=== PATIENT | female | born 1975 | race Caucasian/White ===

== ENCOUNTER 2024-06-09 14:07 | Outpatient (RCR) | payer MEDICAID, SELFPAY | END 2024-06-18 23:59 | disposition home or self-care (01) | LOC: SCTC 14:07 | PROVIDERS: PCP Family Medicine; Referring Provider Family Medicine; Visit Provider Internal Medicine Hematology & Oncology | DX: E53.8 Deficiency of other specified B group vitamins (principal) | CPT/HCPCS: 96372; J3420 ==

== ENCOUNTER 2024-07-11 09:09 | Outpatient (RCR) | payer MEDICAID, SELFPAY | END 2024-07-19 23:59 | disposition home or self-care (01) | LOC: SCTC 09:09 | PROVIDERS: PCP Family Medicine; Referring Provider Family Medicine; Visit Provider Internal Medicine Hematology & Oncology | DX: E53.8 Deficiency of other specified B group vitamins (principal); D50.9 Iron deficiency anemia, unspecified; Z98.84 Bariatric surgery status | CPT/HCPCS: 96372; J3420 ==

== ENCOUNTER 2024-08-11 14:25 | Outpatient (RCR) | payer MEDICAID, SELFPAY | END 2024-08-19 23:59 | disposition home or self-care (01) | LOC: SCTC 14:25 | PROVIDERS: PCP Family Medicine; Referring Provider Family Medicine; Visit Provider Nurse Practitioner Family | DX: Z09 Encounter for follow-up examination after completed treatment for conditions other than malignant neoplasm (principal); Z86.2 Personal history of diseases of the blood and blood-forming organs and certain disorders involving the immune mechanism; E53.8 Deficiency of other specified B group vitamins; Z98.84 Bariatric surgery status; Z80.3 Family history of malignant neoplasm of breast | CPT/HCPCS: 96372; 99212; J3420; G0463 ==

== ENCOUNTER 2024-09-08 13:05 | Outpatient (RCR) | payer MEDICAID, SELFPAY | END 2024-09-16 23:59 | disposition home or self-care (01) | LOC: SCTC 13:05 | PROVIDERS: PCP Family Medicine; Referring Provider Family Medicine; Visit Provider Internal Medicine Hematology & Oncology | DX: E53.8 Deficiency of other specified B group vitamins (principal); Z98.84 Bariatric surgery status | CPT/HCPCS: 96372; J3420 ==

== ENCOUNTER 2024-10-06 13:07 | Outpatient (RCR) | payer MEDICAID, SELFPAY | END 2024-10-17 23:59 | disposition home or self-care (01) | LOC: SCTC 13:07 | PROVIDERS: PCP Family Medicine; Referring Provider Family Medicine; Visit Provider Internal Medicine Hematology & Oncology | DX: E53.8 Deficiency of other specified B group vitamins (principal); D50.9 Iron deficiency anemia, unspecified; Z98.84 Bariatric surgery status | CPT/HCPCS: 96372; J3420 ==

== ENCOUNTER → 2024-10-11 | Outpatient (CLI) | payer MEDICAID, SELFPAY ==
--- NOTE | 2024-10-11 08:45 | XR_ITS ---
Examination: Screening digital mammography, bilateral Computer aided detection 3-D breast Tomosynthesis, bilateral Date and time of exam: October 11, 2024 at 0854 hours Compared to mammograms dating to May 28, 2020 Indication: Screening Technique: Nonmagnified MLO, CC views of the breasts to been obtained, reconstructed from 3-D Tomosynthesis images. R2 computer aided detection program utilized for evaluation of suspicious masses and/or abnormal calcifications. 3-D Tomosynthesis images obtained. Findings: Scattered areas of fibroglandular density Benign calcifications. Stable intact appearing implants 7 mm round asymmetry outer left breast CC view, 8 cm from the nipple IMPRESSION: BI-RADS Category 0: Incomplete: Need additional imaging evaluation 7 mm round asymmetry outer left breast CC view, 8 cm from the nipple, recommend follow-up spot tomographic views upper outer quadrant left breast left breast sonography to complete workup
== END | disposition home or self-care (01) ==
LOC: CDIM 08:38
PROVIDERS: Referring Provider Nurse Practitioner Family; Visit Provider Nurse Practitioner Family
DX: Z12.31 Encounter for screening mammogram for malignant neoplasm of breast (principal); R92.8 Other abnormal and inconclusive findings on diagnostic imaging of breast; N64.89 Other specified disorders of breast
CPT/HCPCS: 77063; 77067

== ENCOUNTER 2024-11-03 13:01 | Outpatient (RCR) | payer MEDICAID, SELFPAY | END 2024-11-16 23:59 | disposition home or self-care (01) | LOC: SCTC 13:01 | PROVIDERS: Referring Provider Internal Medicine Hematology & Oncology; Visit Provider Nurse Practitioner Family | DX: D50.9 Iron deficiency anemia, unspecified (principal); Z98.84 Bariatric surgery status; E53.8 Deficiency of other specified B group vitamins; N64.89 Other specified disorders of breast; Z80.3 Family history of malignant neoplasm of breast | CPT/HCPCS: 96372; 99212; J3420; G0463 ==

== ENCOUNTER 2024-12-07 08:29 | Outpatient (RCR) | payer MEDICAID, SELFPAY | END 2024-12-17 23:59 | disposition home or self-care (01) | LOC: SCTC 08:29 | PROVIDERS: Visit Provider Nurse Practitioner Family | DX: D50.9 Iron deficiency anemia, unspecified (principal); E53.8 Deficiency of other specified B group vitamins; Z98.84 Bariatric surgery status; Z80.3 Family history of malignant neoplasm of breast | CPT/HCPCS: 96365; 96372; J1756; J3420; J7050 ==

== ENCOUNTER → 2024-12-30 | Outpatient (CLI) | payer MEDICAID, SELFPAY ==
--- NOTE | 2024-12-30 14:15 | XR_ITS ---
Examination: Breast ultrasound, unilateral, left complete Date and time of exam: December 30, 2024 1407 hours INDICATIONS: Mammogram October 11, 2024 7 mm focal asymmetry outer left breast 8 cm from the nipple Technique: Real-time hernandez scale ultrasonographic imaging performed left breast including all 4 quadrants as well as nipple retroareolar and axillary region. Findings: 2:00 nodule circumscribed 13 x 3 x 10 mm IMPRESSION: BI-RADS Category 3: Probably benign findings One additional 6 month left breast sonogram follow-up is needed to document stability of 2:00 nodule described above
--- NOTE | 2024-12-30 14:45 | XR_ITS ---
Examination: Diagnostic digital mammography, unilateral, left Computer aided detection 3-D breast Tomosynthesis, unilateral Date and time of exam: December 30, 2024 1434 hours INDICATIONS: Mammogram October 11, 2024 7 mm round asymmetry outer left breast 8 cm from the nipple on the CC view Technique: Nonmagnified MLO, CC views of the left breast have been obtained, reconstructed from 3-D Tomosynthesis images. R2 computer aided detection program utilized for evaluation of suspicious masses and/or abnormal calcifications. 3-D Tomosynthesis images obtained. Findings: Scattered areas of fibroglandular density 10 mm nodule upper left breast on the spot compression views, likely corresponding to the 2:00 nodule 13 x 10 mm on the left breast sonogram report today Impression: BI-RADS category 3: Probably benign findings One additional 6 month left mammogram follow-up is needed
== END | disposition home or self-care (01) ==
PROVIDERS: PCP Physician Assistant; Referring Provider Nurse Practitioner Family; Visit Provider Nurse Practitioner Family
DX: N63.21 Unspecified lump in the left breast, upper outer quadrant (principal); R92.322 Mammographic fibroglandular density, left breast
CPT/HCPCS: 76641; 77061; 77065; G0279

== ENCOUNTER 2025-01-11 13:25 | Outpatient (RCR) | payer MEDICAID, SELFPAY | END 2025-01-16 23:59 | disposition home or self-care (01) | LOC: SCTC 13:25 | PROVIDERS: Visit Provider Nurse Practitioner Family | DX: D50.9 Iron deficiency anemia, unspecified (principal); E53.8 Deficiency of other specified B group vitamins; Z80.3 Family history of malignant neoplasm of breast; N63.21 Unspecified lump in the left breast, upper outer quadrant; R92.323 Mammographic fibroglandular density, bilateral breasts | CPT/HCPCS: 96365; 96372; 99212; A4216; J1756; J3420; J7040; J7050; G0463 ==

== ENCOUNTER 2025-01-18 13:09 | Outpatient (RCR) | payer MEDICAID, SELFPAY | END 2025-02-16 23:59 | disposition home or self-care (01) | LOC: SCTC 13:09 | PROVIDERS: PCP Family Medicine; Referring Provider Family Medicine; Visit Provider Internal Medicine Hematology & Oncology | DX: D50.9 Iron deficiency anemia, unspecified (principal); E53.8 Deficiency of other specified B group vitamins | CPT/HCPCS: 96365; 96374; J1756; J7050 ==

== ENCOUNTER → 2025-02-16 | Outpatient (CLI) | payer MEDICAID, SELFPAY ==
--- NOTE | 2025-02-16 12:00 | XR_ITS ---
Examination: Bilateral breast MRI without intravenous contrast Bilateral breast MRI with intravenous contrast Date and time: February 16, 2025 1234 hours Comparison mammogram December 30, 2024, left breast sonogram December 30, 2024, breast MRI May 02, 2024 INDICATIONS: Strong family history breast cancer, 10 mm nodule upper left breast on mammogram December 30, 2024, 2:00 nodule left breast 13 x 10 mm on left breast sonogram December 30, 2024, change in shape of left breast on clinical examination this month TECHNIQUE AND FINDINGS: Bilateral breast MRI images pre and post intravenous ministration 17 cc gadolinium Scattered areas of fibroglandular density with minimal background breast enhancement 2:00 circumscribed nodule left breast, 10 mm No suspicious breast mass No chest wall lesion No axillary lymphadenopathy Postcontrast images demonstrate no focal abnormal area of rapid wash-in and rapid washout on the postcontrast images IMPRESSION: BI-RADS Category 3: Probably benign findings Recommend 6 month mammography breast sonography follow-up to document stability of 2:00 nodule left breast
== END | disposition home or self-care (01) ==
LOC: SMRI 11:31
PROVIDERS: PCP Family Medicine; Referring Provider Nurse Practitioner Family; Visit Provider Nurse Practitioner Family
DX: N63.21 Unspecified lump in the left breast, upper outer quadrant (principal); Z80.3 Family history of malignant neoplasm of breast
CPT/HCPCS: 77049; A9579; C8908

== ENCOUNTER 2025-02-24 09:17 | Outpatient (RCR) | payer MEDICAID, SELFPAY | END 2025-03-19 23:59 | disposition home or self-care (01) | LOC: SCTC 09:17 | PROVIDERS: PCP Family Medicine; Referring Provider Family Medicine; Visit Provider Nurse Practitioner Family | DX: E53.8 Deficiency of other specified B group vitamins (principal); Z86.2 Personal history of diseases of the blood and blood-forming organs and certain disorders involving the immune mechanism; Z80.3 Family history of malignant neoplasm of breast; N63.20 Unspecified lump in the left breast, unspecified quadrant | CPT/HCPCS: 96372; 99212; J3420; G0463 ==

== ENCOUNTER 2025-03-27 08:44 | Outpatient (RCR) | payer MEDICAID, SELFPAY | END 2025-04-18 23:59 | disposition home or self-care (01) | LOC: SCTC 08:44 | PROVIDERS: PCP Family Medicine; Referring Provider Family Medicine; Visit Provider Internal Medicine Hematology & Oncology | DX: E53.8 Deficiency of other specified B group vitamins (principal); Z98.84 Bariatric surgery status | CPT/HCPCS: 96372; J3420 ==

== ENCOUNTER 2025-04-27 14:25 | Outpatient (RCR) | payer MEDICAID, SELFPAY | END 2025-05-19 23:59 | disposition home or self-care (01) | LOC: SCTC 14:25 | PROVIDERS: PCP Family Medicine; Referring Provider Family Medicine; Visit Provider Internal Medicine Hematology & Oncology | DX: E53.8 Deficiency of other specified B group vitamins (principal); Z98.84 Bariatric surgery status; Z86.2 Personal history of diseases of the blood and blood-forming organs and certain disorders involving the immune mechanism | CPT/HCPCS: 96372; J3420 ==

== ENCOUNTER 2025-05-24 13:06 | Outpatient (RCR) | payer MEDICAID, SELFPAY | END 2025-06-18 23:59 | disposition home or self-care (01) | LOC: SCTC 13:06 | PROVIDERS: PCP Family Medicine; Referring Provider Family Medicine; Visit Provider Internal Medicine Hematology & Oncology | DX: E53.8 Deficiency of other specified B group vitamins (principal); Z98.84 Bariatric surgery status; Z86.2 Personal history of diseases of the blood and blood-forming organs and certain disorders involving the immune mechanism | CPT/HCPCS: 96372; J3420 ==

== ENCOUNTER 2025-06-27 13:01 | Outpatient (RCR) | payer MEDICAID, SELFPAY | END 2025-07-19 23:59 | disposition home or self-care (01) | LOC: SCTC 13:01 | PROVIDERS: PCP Family Medicine; Referring Provider Family Medicine; Visit Provider Nurse Practitioner Family | DX: E53.8 Deficiency of other specified B group vitamins (principal); Z86.2 Personal history of diseases of the blood and blood-forming organs and certain disorders involving the immune mechanism; Z98.84 Bariatric surgery status; Z80.3 Family history of malignant neoplasm of breast | CPT/HCPCS: 96372; 99212; J3420; G0463 ==

== ENCOUNTER → 2025-07-18 | Outpatient (CLI) | payer MEDICAID, SELFPAY ==
--- NOTE | 2025-07-18 | XR_ITS ---
Examination: Diagnostic digital mammography, unilateral, left Computer aided detection 3-D breast Tomosynthesis, unilateral Date and time of exam: 07/18/2025, 8:02 a.m. Comparisons: September 2021 through December 2024 Indications: 6-month follow-up of probably benign outer left breast nodule Technique: Nonmagnified MLO, CC views of the left breast have been obtained, reconstructed from 3-D Tomosynthesis images. R2 computer aided detection program utilized for evaluation of suspicious masses and/or abnormal calcifications. 3-D Tomosynthesis images obtained. Technologist: Findings: There are scattered areas of fibroglandular density. The previously described abnormality is not definitively seen on today's mammogram exam. Otherwise, no evidence of abnormal masses or suspicious calcifications. Impression: No mammographic abnormality. Ultrasound evaluation of the left breast with special attention to the 2:00 area for further evaluation of abnormality previously described on prior ultrasound exam. BI-RADS category 0: Incomplete assessment; need additional imaging evaluation
== END | disposition home or self-care (01) ==
PROVIDERS: PCP Nurse Practitioner Family; Referring Provider Nurse Practitioner Family; Visit Provider Nurse Practitioner Family
DX: R92.8 Other abnormal and inconclusive findings on diagnostic imaging of breast (principal)
CPT/HCPCS: 77061; 77065; G0279